=== PATIENT | female | born 1970 | race Caucasian/White ===

== ENCOUNTER 2016-12-19 18:42 | Emergency (ER) | payer BC, OTHER ==
--- NOTE | ~2016-12-19 | CT71 ---
[facility] A Service of [facility] RADIOLOGY TEXT RESULTS PATIENT: OBI COOPER LOCATION: [facility] : 70 UNIT #: [id number] AGE: [address]: Shakila Elizondo MD SEX: F ORDER DR: [id number] [place] [id number] [facility]. [place], [place] [address] [id number] MR#: [id number] Acc #: [id number] NAME: OBI COOPER : 1970 SEX: F STUDY DATE/TIME: 12/19/2016 19:37 UNIT: [facility] ROOM: STUDY DESCRIPTION: CT Head Wo Contrast Attending Physician: Shakila Elizondo M.D. Ordering Physician: Shakila Elizondo M.D. Primary Care Physician: Cinthia Etienne Aprn MEDICAL IMAGING REPORT This report is preliminary unless electronic signature is present EXAM Head CT without HISTORY Headaches, migraines, history since 12/02/2016. No cancer history. No trauma history indicated. COMMENT Routine noncontrasted head CT is reviewed. This CT exam was performed with one or more of the following radiation dose reduction techniques: Automatic exposure control, adjustment of mA and/or kV according to patient size, and iterative reconstruction. Patient has had a brain MRI 05/01/2016 pending orthodox. There is no displaced calvarial fracture. The visualized mastoid air cells and paranasal sinuses are clear. There is no evidence for acute intracranial hemorrhage or extraaxial fluid collection. There is artifact from beam-hardening lower images, which limits assessment of brainstem in particular. The ventricles are normal in size and configuration. The miguel-white junction is relatively well maintained. There is no intracranial mass effect. No acute cortical infarct is suspected but if this is the clinical concern, followup imaging is recommended preferably with an MRI. IMPRESSION 1. Essentially negative noncontrast head CT, allowing for streak artifact/beam-hardening artifact on the lower images. If symptoms persist, consider followup imaging. [facility] A Service of [facility] RADIOLOGY TEXT RESULTS PATIENT: OBI COOPER LOCATION: [facility] : 70 UNIT #: [id number] AGE: [address]: Shakila Elizondo MD SEX: F ORDER DR: Dictated by... Rozina Tomas M.D. THIS IS AN ELECTRONICALLY VERIFIED REPORT Rozina Tomas M.D. at 12/20/2016 10:24 AM MARTY/barrie TD: 12/20/2016 00:04 JOB #: [id number] MEDICAL IMAGING REPORT Page 1 of 1 COPY
[~2016-12-19 18:42] MED LIST: RELPAX20 MG PO; VITAMIN D1000 UNI1 PO
[2016-12-19 19:18] LABS: BASOPHIL% 0.3 % (0-2.5); EOSINOPHIL# 0.1 X10e3 (0-0.7); EOSINOPHIL% 0.8 % (0.0-7.0); HEMATOCRIT 45.4 % (35.0-45.0); HEMOGLOBIN 14.8 gm/dL (12.0-16.0); LYMPHOCYTE# 3.8 X10e3 (1.0-3.5); LYMPHOCYTE% 31.5 % (17.0-45.0); MEAN CELL VOLUME 87.1 FL (83-96); MEAN CORPUSCULAR HEMOGLOBIN 28.4 PG (28-34); MEAN CORPUSCULAR HGB CONC 32.6 g/dL (30-36); MEAN PLATELET VOLUME 9.2 FL (6.5-11.5); MONOCYTE# 0.6 X10e3 (0-1.0); MONOCYTE% 5.3 % (3.0-12.0); NEUTROPHIL# 7.4 X10e3 (1.5-7.1); NEUTROPHIL% 62.1 % (40-75); PLATELET COUNT 254 X10e3 (140-420); RED BLOOD COUNT 5.21 X10e (3.90-5.30); RED CELL DISTRIBUTION WIDTH 13.9 % (11.0-15.5); WHITE BLOOD COUNT 11.9 X10e3 (4.0-10.5)
[2016-12-19 19:21] LABS: DIFF IND NO
[2016-12-19 19:35] LABS: PARTIAL THROMBOPLASTIN TIME 28.5 SECONDS (23.5-31.3); PROTHROMBIN TIME (PATIENT) 10.7 SECONDS (9.6-11.5)
[2016-12-19 19:58] LABS: ALBUMIN SERUM 3.7 g/dL (3.5-5.0); BILIRUBIN, DIRECT 0.1 mg/dL (0.0-0.2); BILIRUBIN,INDIRECT 0.5 mg/dL (0.0-0.9); BILIRUBIN,TOTAL 0.6 mg/dL (0.2-2.0); BUN/CREATININE RATIO 18.57; CALCIUM SERUM 8.5 mg/dL (8.4-10.2); CREATININE SERUM 0.7 mg/dL (0.6-1.4); GLOM FILT RATE Estimated 103.9 mL/min (>60); POTASSIUM 4.1 mmol/L (3.5-5.1)
[2016-12-21] MEDS ORDERED: METFORMIN PO (11:18)
[2016-12-21] MEDS ORDERED: LISINOPRIL-HCTZ1 T18 PO (11:19)
[2016-12-23] MEDS ORDERED: GABAPENTIN300 MG PO (11:17)
[2016-12-23] MEDS ORDERED: MAGNESIUM500 MG PO (11:18)
[2016-12-23] MEDS ORDERED: LEVOXYL175 MCG PO (11:18)
[2016-12-23] MEDS ORDERED: LIPITOR40 MG PO (11:19)
== END 2016-12-19 21:35 | disposition home or self-care (01) ==
LOC: CED 18:42
PROVIDERS: Student in an Organized Health Care Education/Training Program
DX: G43.809 Other migraine, not intractable, without status migrainosus (principal); E11.9 Type 2 diabetes mellitus without complications; I10 Essential (primary) hypertension; F17.210 Nicotine dependence, cigarettes, uncomplicated
CPT/HCPCS: 36415; 70450; 80048; 80076; 83735; 85025; 85610; 85730; 96361; 96374; 96375; 99284; J1200; J1885; J2405

== ENCOUNTER → 2016-12-21 | Outpatient (CLI) | payer BC, OTHER ==
[~2016-12-21] MED LIST changes: +GABAPENTIN300 MG PO; +LEVOXYL175 MCG PO; +LIPITOR40 MG PO; +LISINOPRIL-HCTZ1 T18 PO; +MAGNESIUM500 MG PO; +METFORMIN PO
== END | disposition home or self-care (01) ==
LOC: CSSDAY 10:50
DX: R51 Headache (principal); Z79.899 Other long term (current) drug therapy
CPT/HCPCS: 96365; 96367; 96374; 96375; J1100; J3475

== ENCOUNTER → 2016-12-22 | Outpatient (CLI) | payer BC, OTHER | END | disposition home or self-care (01) | LOC: CSSDAY 11:10 | DX: R51 Headache (principal) | CPT/HCPCS: 96365; 96367; 96374; J1100; J3475 ==

== ENCOUNTER → 2016-12-23 | Outpatient (CLI) | payer BC, OTHER | END | disposition home or self-care (01) | LOC: CSSDAY 11:17 | DX: R51 Headache (principal) | CPT/HCPCS: 96365; 96367; 96374; J1100; J3475 ==

== ENCOUNTER → 2016-12-24 | Outpatient (CLI) | payer BC, OTHER | END | disposition home or self-care (01) | LOC: CSSDAY 11:08 | DX: R51 Headache (principal) | CPT/HCPCS: 96365; 96367; 96374; J1100; J3475 ==

== ENCOUNTER → 2017-01-03 | Outpatient (CLI) | payer BC, OTHER ==
--- NOTE | ~2017-01-03 | CR173 ---
[facility] A Service of [facility] RADIOLOGY TEXT RESULTS PATIENT: OBI COOPER LOCATION: [facility] : 70 UNIT #: [id number] AGE: [address]: Apolonia Corea MD SEX: F ORDER DR: [id number] [place], [place] [address] [id number] O MR#: [id number] Acc #: [id number] NAME: OBI COOPER : 1970 SEX: F STUDY DATE/TIME: 01/03/2017 12:46 UNIT: [facility] ROOM: STUDY DESCRIPTION: CR Knee 3 Views Rt Attending Physician: Apolonia Corea M.D. Referring Physician: Apolonia Corea M.D. Ordering Physician: Apolonia Corea M.D. Primary Care Physician: Cinthia Etienne Aprn MEDICAL IMAGING REPORT This report is preliminary unless electronic signature is present EXAM Right knee 01/03/2017 INDICATIONS 46-year-old female complaining of osteoarthritis of the right knee. Pain for 8 months. No known injury. Hypertension. TECHNIQUE 3 views right knee. COMPARISON STUDIES No comparisons. FINDINGS Examination is negative. No acute fracture. No joint effusion. There is mild degenerative change in the patellofemoral compartment laterally. IMPRESSION 1. Mild degenerative change, otherwise negative. Dictated by... Good Page M.D. THIS IS AN ELECTRONICALLY VERIFIED REPORT Good Page M.D. at 01/03/2017 10:46 PM JLY/pcl TD: 01/03/2017 16:40 JOB #: [id number] [facility] A Service [facility] RADIOLOGY TEXT RESULTS PATIENT: OBI COOPER LOCATION: [facility] : 70 UNIT #: [id number] AGE: [address]: Apolonia Corea MD SEX: F ORDER DR: MEDICAL IMAGING REPORT Page 1 of 1 COPY
== END | disposition home or self-care (01) ==
LOC: CRAD 11:49
DX: M17.11 Unilateral primary osteoarthritis, right knee (principal)
CPT/HCPCS: 73562

== ENCOUNTER 2017-01-10 13:39 | Emergency (ER) | payer BC, OTHER | END 2017-01-10 15:20 | disposition home or self-care (01) | LOC: CED 13:39 | DX: R51 Headache (principal); E11.9 Type 2 diabetes mellitus without complications; F17.200 Nicotine dependence, unspecified, uncomplicated; I10 Essential (primary) hypertension; Z98.51 Tubal ligation status; Z79.899 Other long term (current) drug therapy | CPT/HCPCS: 96361; 96374; 96375; 99284; J0780; J1100; J1200; J1885 ==

== ENCOUNTER → 2017-01-15 | Outpatient (CLI) | payer BC, OTHER ==
--- NOTE | ~2017-01-15 | MR17 ---
[facility] A Service of [facility] RADIOLOGY TEXT RESULTS PATIENT: OBI COOPER LOCATION: [facility] : 70 UNIT #: [id number] AGE: [address]: CINTHIA ETIENNE APRN SEX: F ORDER DR: [id number] [facility] [address] [place], [place] [address] [id number] O MR#: [id number] Acc #: [id number] NAME: OBI COOPER : 1970 SEX: F STUDY DATE/TIME: 01/15/2017 13:27 UNIT: [facility] ROOM: STUDY DESCRIPTION: MR Brain WWo Contrast Attending Physician: Cinthia Etienne Aprn Ordering Physician: Cinthia Etienne Aprn Primary Care Physician: Apolonia Corea M.D. MRI CENTER REPORT This report is preliminary unless electronic signature is present. EXAM Brain MR with and without contrast date of study 01/15/2017 COMPARISON Prior brain MR 04/30/2016 PROCEDURE Routine brain MR with and without contrast. CLINICAL HISTORY Six week history of severe repetitive migraine headaches associated with neck pressure radiating to base of skull. FINDINGS There is no MR evidence of acute ischemia or other restricted diffusion. There are scattered nonspecific white matter T2 changes but there is no hydrocephalus or extraaxial fluid collection. Normal flow voids are seen in the cerebral vessels. The extracranial soft tissues are normal. Postcontrast images show no mass or abnormal enhancement. Bone marrow signal is within normal limits. IMPRESSION Minimal nonspecific white matter change, essentially normal brain MRI with and without contrast. No substantial interval change since the previous MRI of 04/30/2016. Dictated by... Landon Hernandez M.D. THIS IS AN ELECTRONICALLY VERIFIED REPORT Landon Hernandez M.D. at 01/24/2017 10:44 AM MANJINDER/andrea [facility] A Service [facility] RADIOLOGY TEXT RESULTS PATIENT: OBI COOPER LOCATION: [facility] : 70 UNIT #: [id number] AGE: [address]: CINTHIA ETIENNE APRN SEX: F ORDER DR: TD: 01/17/2017 10:14 JOB #: [id number] MRI CENTER REPORT Page 1 of 1 COPY
== END | disposition home or self-care (01) ==
LOC: CMRI 13:10
DX: G43.909 Migraine, unspecified, not intractable, without status migrainosus (principal); R20.2 Paresthesia of skin
CPT/HCPCS: 70553; A9577

== ENCOUNTER → 2017-06-02 | Outpatient (CLI) | payer OTHER ==
--- NOTE | ~2017-06-02 | CR63 ---
[facility] A Service of [facility] RADIOLOGY TEXT RESULTS PATIENT: OBI COOPER LOCATION: [facility] : 70 UNIT #: [id number] AGE: [address]: Apolonia Corea MD SEX: F ORDER DR: [id number] [facility] [address] [place], [place] [address] [id number] O MR#: [id number] Acc #: [id number] NAME: OBI COOPER : 1970 SEX: F STUDY DATE/TIME: 06/02/2017 15:21 UNIT: [facility] ROOM: STUDY DESCRIPTION: CR Chest 2 View Attending Physician: Apolonia Corea M.D. Referring Physician: Apolonia Corea M.D. Ordering Physician: Apolonia Corea M.D. Primary Care Physician: Apolonia Corea M.D. MEDICAL IMAGING REPORT This report is preliminary unless electronic signature is present EXAM Chest 2 views 06/02/2017 15:21 hours. HISTORY 46-year-old with complaint of chest pain beginning 3 weeks ago, worsening over the past week. COMPARISON 12/17/11. FINDINGS Upright, PA and lateral views of the chest demonstrate normal cardiac, mediastinal and hilar contours. There are calcified granulomata bilaterally. The lungs are clear of acute densities. There is no effusion or pneumothorax. IMPRESSION Benign calcified granulomatous changes. No acute cardiopulmonary findings. Dictated by... Miladis Rivas M.D. THIS IS AN ELECTRONICALLY VERIFIED REPORT Miladis Rivas M.D. at 06/04/2017 11:08 AM JAYLON/ethan TD: 06/03/2017 16:35 JOB #: [id number] MEDICAL IMAGING REPORT Page 1 of 1 COPY
== END | disposition home or self-care (01) ==
LOC: CRAD 15:01
DX: R07.9 Chest pain, unspecified (principal)
CPT/HCPCS: 71020